=== PATIENT | female | born 1975 | race African-American/Black ===

== ENCOUNTER 2019-02-04 11:59 | Emergency (ER) | payer BC ==
[~2019-02-04] VITALS: Ht 165.1 cm; Wt 81.6 kg
--- OUTSIDE RECORDS SUMMARY | 2019-02-04 12:07 | XMS REPORT | CCD ---
Author Author Auto Generated Organization [facility] Address Unknown Phone Unavailable Care Team Providers Care Pier Master Assistant Name Role Phone Sandeep Cobb CP Allergies, Adverse Reactions, Alerts Substance Reaction Status NKDA Active Medications Medication Instructions Start Date End Date Status fluconazole 150 mg 150 mg, 1 tab, PO, ONCE, 1 tab, 05/24/2013 Ordered oral tablet Substitution Allowed Ultram 50 mg oral 50 mg, 1 tab, PO, Q4H, PRN, 20 tab, 05/24/2013 Ordered tablet pain, Substitution Allowed [place] 5/325 oral 1 tab, Route: PO, Drug Form: TAB, 05/24/2013 05/24/2013 Completed tablet Dosing Weight 80, kg, ONCE, Start date: 05/24/13 7:11:00, Stop date: 05/24/13 7:11:00 Vital Signs Most recent to oldest [Reference Range]: 1 2 Height 162.56 cm (05/24/2013 06:49:00) Temperature Oral [96.4-99.1 DegF] 98.6 DegF (05/24/2013 09:40:00) 98.6 DegF (05/24/2013 06:49:00) Systolic Blood Pressure [90-140 mmHg] 133 mmHg (05/24/2013 09:40:00) 145 mmHg *HI* (05/24/2013 06:49:00) Diastolic Blood Pressure [60-90 mmHg] 74 mmHg (05/24/2013 09:40:00) 74 mmHg (05/24/2013 06:49:00) Respiratory Rate [14-20 BRMIN] 20 BRMIN (05/24/2013 09:40:00) 18 BRMIN (05/24/2013 06:49:00) Peripheral Pulse Rate [60-100 bpm] 85 bpm (05/24/2013 09:40:00) 86 bpm (05/24/2013 06:49:00) Weight 80 kg (05/24/2013 06:49:00) Results URINALYSIS Most recent to oldest [Reference Range]: 1 UA Turbidity [Clear] Clear (05/24/2013 06:57:00) UA Color [Yellow] Yellow *NA* (05/24/2013 06:57:00) UA pH [5.0-8.0] 6.0 (05/24/2013 06:57:00) UA Spec Grav [<=1.030] 1.025 (05/24/2013 06:57:00) UA Glucose [Negative] Negative (05/24/2013 06:57:00) UA Blood [Negative] Moderate *ABN* (05/24/2013 06:57:00) UA Ketones [Negative] Negative *NA* (05/24/2013 06:57:00) UA Protein [Negative mg/dL] 30 mg/dL *ABN* (05/24/2013 06:57:00) UA Urobilinogen [0.1-1.0 EU/dL] 0.2 EU/dL (05/24/2013 06:57:00) UA Bili [Negative] Negative *NA* (05/24/2013 06:57:00) UA Leuk Est [Negative] Trace *ABN* (05/24/2013 06:57:00) UA Nitrite [Negative] Negative (05/24/2013 06:57:00) UA WBC [0-5 /HPF] 8 /HPF *HI* (05/24/2013 06:57:00) UA RBC [0-2 /HPF] 6 /HPF *HI* (05/24/2013 06:57:00) UA Bacteria [None Seen /HPF] Occasional /HPF *NA* (05/24/2013 06:57:00) UA Sq Epi [Few /LPF] Many /LPF *ABN* (05/24/2013 06:57:00) UA [place] Yeast [None Seen /HPF] Occasional /HPF *ABN* (05/24/2013 06:57:00) CHEMISTRY Most recent to oldest [Reference Range]: 1 U Preg [Negative] Negative (05/24/2013 06:57:00) IMMUNOLOGY Most recent to oldest [Reference Range]: 1 Source Chlam endocervix *NA* (05/24/2013 08:30:00) Chlam PCR [Negative] Negative (05/24/2013 08:30:00) Source [place] Endocervix *NA* (05/24/2013 08:30:00) Gonorrhea PCR [Negative] Negative (05/24/2013 08:30:00) Microbiology Reports PROCEDURE:Wet Prep STATUS: Auth (Verified) BODY SITE: Vaginal Smear COLLECTED DATE/TIME: 05/24/2013 08:30:00 SOURCE: Scraping FREE TEXT SOURCE: FINAL REPORTS Final Report Many WBC's Seen Rare RBC's Seen No Clue Cells Seen Occasional Epithelial Cells Seen No Bacteria Seen Occasional Yeast Seen No Trichomonas Species Seen PROCEDURE:Culture: Urine STATUS: Auth (Verified) BODY SITE: COLLECTED DATE/TIME: 05/24/2013 06:57:00 SOURCE: Urine, Clean Catch FREE TEXT SOURCE: FINAL REPORTS Final Report 10,000 - 50,000 CFU/mL Skin Mary <10,000 CFU/mL Gram Negative Rods, Lactose Fermenters PRELIMINARY REPORTS Preliminary Report Holding For Better Growth
--- OUTSIDE RECORDS SUMMARY | 2019-02-04 12:07 | XMS REPORT | Clinical Summary ---
Author Author [employer] Organization [employer] Address Unknown Phone Unavailable Care Team Providers Care Compo Conveyor Operator Name Role Phone Sally Bolanos MD PCP Allergies No Known Allergies Medications End Date Status Medication Sig Dispensed Refills Start Date Active brimonidine-timolol Administer 1 0 (COMBIGAN) 0.2-0.5 % drop to both 8 ophthalmic solution eyes daily. Active LANTUS SOLOSTAR U-100 Inject 50 0 INSULIN 100 unit/mL Units under 8 injection (pen) the skin nightly. Active HYZAAR 100-25 mg per Take 1 tablet 0 tablet by mouth 8 daily. Active HUMALOG KWIKPEN INSULIN Inject 13 0 200 unit/mL (3 mL) Units under 8 insulin pen the skin 3 (three) times a day before meals. Active diazePAM (VALIUM) 5 MG Take 5 mg by 0 tablet mouth nightly 8 as needed. Active VITAMIN D2 50,000 unit Take 50,000 0 capsule Units by 8 mouth once a week. Every Thursday Active simvastatin (ZOCOR) 20 MG Take 20 mg by 0 tablet mouth 8 nightly. Active pen needle, diabetic (BD 3 (three) 0 ULTRA-FINE MINI PEN times daily. 0 NEEDLE) 31 gauge x 3/16" needle 05/04/2018 Discontinued PREMARIN 1.25 mg tablet 0 8 07/09/2018 Discontinued insulin detemir U-100 Inject 35 0 (LEVEMIR) 100 unit/mL Units under 0 injection the skin. 03/29/2018 Discontinued LANTUS SOLOSTAR U-100 INJ 50 UNITS 2 INSULIN 100 unit/mL SC QHS 8 injection (pen) 07/28/2018 Discontinued norethindrone (AYGESTIN) Take 1 tablet 30 tablet 11 5 mg tablet (5 mg total) 8 by mouth daily. 05/07/2018 doxycycline (VIBRAMYCIN) Take 1 6 capsule 0 100 MG capsule capsule (100 8 mg total) by mouth 2 (two) times a day for 3 days. 08/26/2018 ibuprofen (ADVIL,MOTRIN) Take 1 tablet 15 tablet 0 600 MG tablet (600 mg 8 total) by mouth every 6 (six) hours as needed for mild pain for up to 30 days. 08/01/2018 acetaminophen-codeine Take 1 tablet 10 tablet 0 (TYLENOL WITH CODEINE #3) by mouth 8 300-30 mg per tablet every 4 (four) hours as needed for moderate pain for up to 5 days. 08/27/2018 simethicone (GAS-X) 80 MG Chew 1 tablet 15 tablet 0 chewable tablet (80 mg total) 8 every 6 (six) hours as needed for flatulence for up to 30 days. 09/02/2018 acetaminophen-codeine Take 1 tablet 30 tablet 0 (TYLENOL WITH CODEINE #3) by mouth 8 300-30 mg per tablet every 6 (six) hours as needed for moderate pain for up to 30 days. 10/04/2018 metroNIDAZOLE (FLAGYL) Take 1 tablet 14 tablet 0 500 MG tablet (500 mg 9 total) by mouth 2 (two) times a day for 7 days. Active Problems Problem Noted Date Abnormal uterine bleeding 07/27/2018 Abnormal vaginal bleeding 07/27/2018 Encounters Care Team Description Date Type Specialty Cheikh Arreguin Abnormal uterine bleeding; BV (bacterial vaginosis) 09/27/2018 Office Visit Gynecologic Oncology Cheikh Arreguin Abnormal uterine bleeding 08/11/2018 Office Visit Gynecologic Oncology Shaye Farias MA 08/03/2018 Orders Only Gynecologic Oncology Cheikh Arreguin 08/03/2018 Telephone Gynecologic Oncology Cheikh Arreguin ROBOTIC HYSTERECTOMY, BILATERAL SALPINGECTOMY 07/27/2018 Surgery Obstetrics and Gynecology Anh Lombardi NP 07/27/2018 Anesthesia Obstetrics and Gynecology Event Cheikh Arreguin Abnormal uterine bleeding (Primary Dx); Menorrhagia with regular cycle; Abnormal vaginal bleeding 07/27/2018 Hospital Obstetrics and Gynecology - Encounter 07/28/2018 Cheikh Arreguin 07/26/2018 Telephone Gynecologic Oncology Cheikh Arreguin Pre-op testing 07/09/2018 Hospital Radiology Encounter Cheikh Arreguin Pre-op testing 07/09/2018 Pre-Admit Pre-Admission Testing Testing Appointment Pre-op testing (Primary Dx) 07/09/2018 Clinical Gynecologic Oncology Support Cheikh Arreguin 07/08/2018 Telephone Gynecologic Oncology Cheikh Arreguin Menorrhagia with irregular cycle 06/30/2018 Office Visit Gynecologic Oncology Dorothea Asif RN 06/04/2018 Telephone Obstetrics and Gynecology Dorothea Asif RN Dysfunctional uterine bleeding (Primary Dx) 06/04/2018 Orders Only Obstetrics and Gynecology Karen Ham RN 06/01/2018 Telephone Obstetrics and Gynecology Karen Ham RN Menorrhagia with regular cycle (Primary Dx) 06/01/2018 Orders Only Obstetrics and Gynecology Dorothea Asif RN 05/11/2018 Telephone Obstetrics and Gynecology Nate Mcgraw MD DUB (dysfunctional uterine bleeding) (Primary Dx); Pre-procedure lab exam 05/04/2018 Procedure visit Obstetrics and Gynecology Nate Mcgraw MD DUB (dysfunctional uterine bleeding) 05/04/2018 Ancillary Obstetrics and Gynecology Procedure Lizzie Lugo MA 04/05/2018 Telephone Obstetrics and Gynecology Lizzie Lugo MA DUB (dysfunctional uterine bleeding) (Primary Dx) 03/30/2018 Orders Only Obstetrics and Gynecology Nate Mcgraw MD Well woman exam (Primary Dx); DUB (dysfunctional uterine bleeding) 03/29/2018 Office Visit Obstetrics and Gynecology after 02/03/2018 Family History Medical History Relation Name Comments Diabetes Father Hypertension Mother Relation Name Status Comments Father Alive Mother Alive Social History Date Tobacco Use Types Packs/Day Years Used Never Smoker Smokeless Tobacco: Never Used Alcohol Use Drinks/Week oz/Week Comments Yes occassional Sex Assigned at Date Recorded Not on file Industry Job Start Date Occupation Not on file Not on file Not on file Travel End Travel History Travel Start No recent travel history available. Last Filed Vital Signs Time Taken Vital Sign Reading 09/27/2018 9:15 AM [facility] Blood Pressure 165/84 08/11/2018 10:56 AM [facility] Pulse 90 07/28/2018 11:52 AM [facility] Temperature 37.5 C (99.5 F) 07/28/2018 11:52 AM [facility] Respiratory Rate 20 07/28/2018 11:52 AM [facility] Oxygen Saturation 96% - Inhaled Oxygen - Concentration 09/27/2018 9:15 AM [facility] Weight 82.6 kg (182 lb) 07/27/2018 6:22 AM [facility] Height 165.1 cm (5' 5") 09/27/2018 9:15 AM [facility] Body Mass Index 30.29 Plan of Treatment Health Maintenance Due Date Last Done Comments CERVICAL CANCER SCREENING 01/08/1997 INFLUENZA VACCINE 04/21/2019 Procedures Comments Procedure Name Priority Date/Time Associated Diagnosis POC GLUCOSE Routine 07/28/2018 11:52 AM [facility] POC GLUCOSE Routine 07/28/2018 9:00 AM [facility] POC GLUCOSE Routine 07/28/2018 7:30 AM [facility] HC COMPLETE BLD COUNT Routine 07/28/2018 W/AUTO DIFF 5:15 AM [facility] ESTIMATED GFR Routine 07/28/2018 4:00 AM [facility] BASIC METABOLIC PANEL Routine 07/28/2018 4:00 AM [facility] XR CHEST 1 VW PORTABLE STAT 07/27/2018 10:30 PM [facility] ECG 12-LEAD Routine 07/27/2018 10:13 PM [facility] POC GLUCOSE Routine 07/27/2018 9:18 PM [facility] POC GLUCOSE Routine 07/27/2018 2:48 PM [facility] SURGICAL PATHOLOGY Routine 07/27/2018 REQUEST 11:23 AM [facility] POC GLUCOSE Routine 07/27/2018 9:50 AM [facility] UT AN ELECTIVE Routine 07/27/2018 ENDOTRACHEAL AIRWAY 8:28 AM [facility] Procedure Note - Neli Yung - 07/27/2018 8:28 AM [facility] Airway Date/Time: 07/27/2018 7:55 AM Performed by: JEREMY JULES Authorized by: JEREMY JULES Location: OR Urgency: Elective Difficult Airway: No Anesthesio logist: JEREMY JULES Other Anesthesia Staff: NELI YUNG Performed by: other anesthesia staff Preoxygena kahlil with 100% O2: Yes C-spine Precaution s Maintained Throughout : Yes Mask Ventilatio n: Assisted mask Final Airway Type: Endotrache al airway Final Endotrache al Airway: ETT Cuffed: Yes Technique Used: Direct laryngosco py Devices/Me thods Used in Placement: Intubatin g stylet Insertion Site: Oral Blade Type: Laurent Laryngosco pe Blade/Vide olaryngosc ope Blade Size: 2 ETT Size (mm): 7.0 Cuff at minimum occlusion pressure: Yes Measured from: Lips ETT to Lips (cm): 20 Placement Verified by: CO2 detection, direct visualizat ion and equal breath sounds Laryngosco pic view: Grade I - full view of glottis Rapid Sequence Induction (RSI): No Number of Attempts at Approach: 1 HYSTERECTOMY, ABDOMINAL, 07/27/2018 Menorrhagia with regular LAPAROSCOPIC, 8:00 AM [facility] cycle ROBOT-ASSISTED Case Notes DAVINCI* *, POSSIBLE EXTENDED RECOVERY Special Needs DAVINCI* *, POSSIBLE EXTENDED RECOVERY POC GLUCOSE Routine 07/27/2018 6:40 AM [facility] XR CHEST 2 VW Routine 07/09/2018 Pre-op testing 1:04 PM CDT ECG PRE/POST OP Routine 07/09/2018 Pre-op testing 12:04 PM CDT HEMOGLOBIN A1C Routine 07/09/2018 Pre-op testing 11:57 AM CDT ESTIMATED GFR Routine 07/09/2018 11:53 AM CDT TYPE AND SCREEN Routine 07/09/2018 Pre-op testing 11:53 AM CDT PROTHROMBIN TIME WITH INR Routine 07/09/2018 Pre-op testing 11:53 AM CDT PARTIAL THROMBOPLASTIN Routine 07/09/2018 Pre-op testing TIME (PTT) 11:53 AM CDT COMPREHENSIVE METABOLIC Routine 07/09/2018 Pre-op testing PANEL 11:53 AM CDT HC COMPLETE BLD COUNT Routine 07/09/2018 Pre-op testing W/AUTO DIFF 11:53 AM CDT US GUIDED INTRAOPERATIVE Routine 05/04/2018 DUB (dysfunctional 3:00 PM CDT uterine bleeding) SURGICAL PATHOLOGY Routine 05/04/2018 DUB (dysfunctional REQUEST 3:00 PM CDT uterine bleeding) TISSUE, SPECIMEN A Routine 05/04/2018 3:00 PM CDT POC , URINE Routine 05/04/2018 Pre-procedure lab exam 2:49 PM CDT DUB (dysfunctional uterine bleeding) CHLAMYDIA/N. GONORRHOEAE Routine 03/29/2018 RNA, TMA 3:43 PM CDT HPV MRNA E6/E7 REFLEX Routine 03/29/2018 HPV 16, 18/45 (REFLEX) 3:43 PM CDT THINPREP TIS PAP Routine 03/29/2018 3:43 PM CDT PAP W/AGE BASED SCREENING Routine 03/29/2018 Well woman exam PLUS CT/NG 3:43 PM CDT DUB (dysfunctional uterine bleeding) FOLLICLE STIMULATING Routine 03/29/2018 DUB (dysfunctional HORMONE 2:57 PM CDT uterine bleeding) after 02/03/2018 Results * POC glucose (07/28/2018 11:52 AM [facility]) Only the most recent of 7 results within the time period is included. POC glucose 147 (H) 65 - 99 mg/dL [facility] DEPARTMENT OF Comment: PATHOLOGY AND [facility] Notified RN GENOMIC MEDICINE Meter ID: [id number] Business Development Analyst: Winter Hernandez Performing Organization Address City/State/Zipcode Phone Number [facility] DEPARTMENT OF [address] [place] [address] PATHOLOGY AND GENOMIC MEDICINE * CBC with platelet and differential (07/28/2018 5:15 AM [facility]) Only the most recent of 2 results within the time period is included. WBC 11.46 (H) 4.50 - 11.00 k/uL [facility] DEPARTMENT OF PATHOLOGY AND GENOMIC MEDICINE RBC 3.01 (L) 4.20 - 5.50 m/uL [facility] DEPARTMENT OF PATHOLOGY AND GENOMIC MEDICINE HGB 8.3 (L) 12.0 - 16.0 g/dL [facility] DEPARTMENT OF PATHOLOGY AND GENOMIC MEDICINE HCT 25.4 (L) 37.0 - 47.0 % [facility] DEPARTMENT OF PATHOLOGY AND GENOMIC MEDICINE MCV 84.4 82.0 - 100.0 fL [facility] DEPARTMENT OF PATHOLOGY AND GENOMIC MEDICINE MCH 27.6 27.0 - 34.0 pg [facility] DEPARTMENT OF PATHOLOGY AND GENOMIC MEDICINE MCHC 32.7 31.0 - 37.0 g/dL [facility] DEPARTMENT OF PATHOLOGY AND GENOMIC MEDICINE RDW - SD 40.8 37.0 - 55.0 fL [facility] DEPARTMENT OF PATHOLOGY AND GENOMIC MEDICINE MPV 10.0 8.8 - 13.2 fL [facility] DEPARTMENT OF PATHOLOGY AND GENOMIC MEDICINE Platelet count 334 150 - 400 k/uL [facility] DEPARTMENT OF PATHOLOGY AND GENOMIC MEDICINE Nucleated RBC 0.00 /100 WBC [facility] DEPARTMENT OF PATHOLOGY AND GENOMIC MEDICINE Neutrophils 75.0 (H) 39.0 - 69.0 % [facility] DEPARTMENT OF PATHOLOGY AND GENOMIC MEDICINE Lymphocytes 14.9 (L) 25.0 - 45.0 % [facility] DEPARTMENT OF PATHOLOGY AND GENOMIC MEDICINE Monocytes 8.9 0.0 - 10.0 % [facility] DEPARTMENT OF PATHOLOGY AND GENOMIC MEDICINE Eosinophils 0.2 0.0 - 5.0 % [facility] DEPARTMENT OF PATHOLOGY AND GENOMIC MEDICINE Basophils 0.4 0.0 - 1.0 % [facility] DEPARTMENT OF PATHOLOGY AND GENOMIC MEDICINE Immature granulocytes 0.6Comment: "Immature 0.0 - 1.0 % [facility] DEPARTMENT OF granulocytes" (promyelocytes, PATHOLOGY AND myelocytes, metamyelocytes) [facility] MEDICINE Specimen Blood Performing Organization Address City/State/Zipcode Phone Number [facility] DEPARTMENT OF [address] [place] [address] PATHOLOGY AND GENOMIC MEDICINE * Estimated GFR (07/28/2018 4:00 AM [facility]) Only the most recent of 2 results within the time period is included. Estimated GFR 15 (A) mL/min/1.73 m2 [facility] DEPARTMENT OF Comment: PATHOLOGY AND [employer] GENOMIC MEDICINE rpretation G1 >=90 Normal or high G2 60-89Mildly decreased Q2w89-73 Mildly to moderately decreased Q4e67-71 Moderately to severely decreased G4 15-29Severely decreased G5 <15Kidney failure The eGFR was calculated using the Chronic Kidney Disease Epidemiology Collaboration (CKD-EPI) equation. Interpretation is based on recommendations of the National Kidney Foundation-Kidney Disease Outcomes Quality Initiative (NKF-KDOQI) published in 2014. Specimen Plasma specimen Performing Organization Address City/[facility] [place] [address] PATHOLOGY AND GENOMIC MEDICINE * Basic metabolic panel (07/28/2018 4:00 AM [facility]) Sodium 133 (L) 135 - 148 mEq/L [facility] DEPARTMENT OF PATHOLOGY AND GENOMIC MEDICINE Potassium 3.7 3.5 - 5.0 mEq/L [facility] DEPARTMENT OF PATHOLOGY AND GENOMIC MEDICINE Chloride 99 98 - 112 mEq/L [facility] DEPARTMENT OF PATHOLOGY AND GENOMIC MEDICINE CO2 21 (L) 24 - 31 mEq/L [facility] DEPARTMENT OF PATHOLOGY AND GENOMIC MEDICINE Anion gap 13@ANIO 7 - 15 mEq/L [facility] DEPARTMENT OF PATHOLOGY AND GENOMIC MEDICINE BUN 38 (H) 6 - 20 mg/dL [facility] DEPARTMENT OF PATHOLOGY AND GENOMIC MEDICINE Creatinine 3.58 (H) 0.50 - 0.90 mg/dL [facility] DEPARTMENT OF PATHOLOGY AND GENOMIC MEDICINE Glucose 53 (L) 65 - 99 mg/dL [facility] DEPARTMENT OF PATHOLOGY AND GENOMIC MEDICINE Calcium 8.5 8.3 - 10.2 mg/dL [facility] DEPARTMENT OF PATHOLOGY AND GENOMIC MEDICINE Specimen Plasma specimen Performing Organization Address [facility] [place] [address] PATHOLOGY AND GENOMIC MEDICINE * XR Chest 1 Vw Portable (07/27/2018 10:30 PM [facility]) Narrative Performed At EXAMINATION:XR CHEST 1 VW PORTABLE [facility] CLINICAL HISTORY:Shortness of breath COMPARISON:July 09, 2008 IMPRESSION: The lungs are clear. The heart is not enlarged. The bony structures are within normal limits. [facility]-[id number] Procedure Note Hm Interface, Radiology Results Incoming - 07/27/2018 10:39 PM [facility] EXAMINATION: XR CHEST 1 VW PORTABLE CLINICAL HISTORY: Shortness of breath COMPARISON: July 09, 2008 IMPRESSION: The lungs are clear. The heart is not enlarged. The bony structures are within normal limits. [facility]-[id number] Performing Organization Address City/[facility]/Zipcode Phone Number [facility] [address] [place] [address] * ECG 12 lead (07/27/2018 10:13 PM [facility]) Ventricular rate 103 [facility] MUSE Atrial rate 103 [facility] M[facility] UT interval 164 [facility] M[facility] QRSD interval 80 [facility] M[facility] QT interval 346 [facility] M[facility] QTC interval 453 [facility] MUSE P axis 1 52 [facility] MUSE QRS axis 1 34 [facility] MUSE T wave axis 49 [facility] MUSE EKG impression Sinus tachycardia-Otherwise [facility] MUSE normal ECG-- Performing Organization Address [facility] Phone Number [facility] [address] [place] [address] * Surgical pathology request (07/27/2018 11:23 AM [facility]) Only the most recent of 2 results within the time period is included. [facility] DEPARTMENT OF PATHOLOGY AND GENOMIC MEDICINE Surgical pathology report See link below for PDF Lab [facility] DEPARTMENT OF Report PATHOLOGY AND GENOMIC MEDICINE Result status This is Final Report for [facility] DEPARTMENT OF [id number] PATHOLOGY AND GENOMIC MEDICINE Performing Organization Address [facility] Phone Number [facility] DEPARTMENT OF [address] [place] [address] PATHOLOGY AND GENOMIC MEDICINE * XR Chest 2 Vw (07/09/2018 1:04 PM CDT) Narrative Performed At EXAMINATION:XR CHEST 2 VW [facility] CLINICAL HISTORY:Z01.818 Encounter for other preprocedural examination, pre op COMPARISON:None IMPRESSION: 1.Lungs are clear and the heart size is normal. 2.The vessels are not congested. There are no pleural effusions. [id number] Procedure Note Interface, Radiology Results Incoming - 07/09/2018 1:27 PM CDT EXAMINATION: XR CHEST 2 VW CLINICAL HISTORY: Z01.818 Encounter for other preprocedural examination, pre op COMPARISON: None IMPRESSION: 1. Lungs are clear and the heart size is normal. 2. The vessels are not congested. There are no pleural effusions. [id number] Performing Organization Address [facility]/Zipcode Phone Number [facility] [address] [place] [address] * ECG Pre/Post Op (07/09/2018 12:04 PM CDT) Ventricular rate 76 [facility] MUSE Atrial rate 76 [facility] MUSE UT interval 186 [facility] MUSE QRSD interval 78 [facility]USE QT interval 384 [facility] MUSE QTC interval 432 [facility] MUSE P axis 1 61 [facility] MUSE QRS axis 1 42 [facility] MUSE T wave axis 42 [facility] MUSE EKG impression Normal sinus rhythm-Normal [facility] MUSE ECG-No previous ECGs available- Performing Organization Address [facility] Phone Number [facility] [address] [place] [address] * Hemoglobin A1c (07/09/2018 11:57 AM CDT) Hemoglobin A1C 7.7 (H) 4.0 - 5.6 % [facility] DEPARTMENT OF Comment: PATHOLOGY AND HbA1c cutoffs for diagnosing GENOMIC MEDICINE diabetes: 4.0% - 5.6%=normal 5.7% - 6.4%=increased risk for diabetes (prediabetes) >=6.5%=diabetes Goals for glycemic control (ADA 2016) < 7.0%Target for non adults with diabetes. More or less stringent targets may be appropriate for individual patients. <7.5% Target for Children and adolescents with type 1 diabetes. Specimen Blood Performing Organization Address [facility] Phone Number [facility] [place] [address] PATHOLOGY AND [employer] MEDICINE * Partial thromboplastin time, activated (07/09/2018 11:53 AM CDT) PTT 24.4 23.0 - 36.0 sec [facility] DEPARTMENT OF Comment: PATHOLOGY AND PTT therapeutic range for GENOMIC MEDICINE unfractionated heparin is 61.0-112.0 seconds which corresponds to Anti-Xa 0.3-0.7 U/ml. Specimen Blood Performing Organization Address [facility] Phone Number [facility] [place] [address] PATHOLOGY AND [employer] MEDICINE * Prothrombin time with INR (07/09/2018 11:53 AM CDT) Prothrombin time 13.3 12.0 - 15.0 sec [facility] DEPARTMENT OF PATHOLOGY AND GENOMIC MEDICINE INR 1.0 [facility] DEPARTMENT OF Comment: PATHOLOGY AND The International Normalized GENOMIC MEDICINE Ratio (INR) is a therapeutic monitoring tool for patients who are stable on oral anticoagulant therapy. An INR of 2.0-3.0 is suggested for deep vein thrombosis/pulmonary embolism. Specimen Blood Performing Organization Address City/[facility]/[place] [address] PATHOLOGY AND GENOMIC MEDICINE * Type and screen (07/09/2018 11:53 AM CDT) ABO grouping O [facility] DEPARTMENT OF PATHOLOGY AND GENOMIC MEDICINE Rh type POS [facility] DEPARTMENT OF PATHOLOGY AND GENOMIC MEDICINE Antibody screen (gel) NEG [facility] DEPARTMENT OF PATHOLOGY AND GENOMIC MEDICINE Specimen Blood Performing Organization Address City/[facility] [place] [address] PATHOLOGY AND GENOMIC MEDICINE * Comprehensive metabolic panel (07/09/2018 11:53 AM CDT) Sodium 135 135 - 148 mEq/L [facility] DEPARTMENT OF PATHOLOGY AND GENOMIC MEDICINE Potassium 4.0 3.5 - 5.0 mEq/L [facility] DEPARTMENT OF PATHOLOGY AND GENOMIC MEDICINE Chloride 101 98 - 112 mEq/L [facility] DEPARTMENT OF PATHOLOGY AND GENOMIC MEDICINE CO2 22 (L) 24 - 31 mEq/L [facility] DEPARTMENT OF PATHOLOGY AND GENOMIC MEDICINE Anion gap 12@ANIO 7 - 15 mEq/L [facility] DEPARTMENT OF PATHOLOGY AND GENOMIC MEDICINE BUN 38 (H) 6 - 20 mg/dL [facility] DEPARTMENT OF PATHOLOGY AND GENOMIC MEDICINE Creatinine 3.16 (H) 0.50 - 0.90 mg/dL [facility] DEPARTMENT OF PATHOLOGY AND GENOMIC MEDICINE Glucose 166 (H) 65 - 99 mg/dL [facility] DEPARTMENT OF PATHOLOGY AND GENOMIC MEDICINE Calcium 9.1 8.3 - 10.2 mg/dL [facility] DEPARTMENT OF PATHOLOGY AND GENOMIC MEDICINE Protein 7.2 6.3 - 8.3 g/dL [facility] DEPARTMENT OF Comment: PATHOLOGY AND GENOMIC MEDICINE 4.6-7.0 g/dL 1 week 4.4-7.6 g/dL 7 months-1year 5.1-7.3 g/dL 1-2 years5.6-7 .5 g/dL >3 years6.0-8 .0 g/dL 18-150 6.3-8.3 g/dL Albumin 3.0 (L) 3.5 - 5.0 g/dL [facility] DEPARTMENT OF PATHOLOGY AND GENOMIC MEDICINE A/G ratio 0.7 0.7 - 3.8 [facility] DEPARTMENT OF PATHOLOGY AND GENOMIC MEDICINE Alkaline phosphatase 59 35 - 104 U/L [facility] DEPARTMENT OF PATHOLOGY AND GENOMIC MEDICINE AST 14 10 - 35 U/L [facility] DEPARTMENT OF PATHOLOGY AND GENOMIC MEDICINE ALT 15 5 - 50 U/L [facility] DEPARTMENT OF PATHOLOGY AND GENOMIC MEDICINE Total bilirubin <0.2 0.0 - 1.2 mg/dL [facility] DEPARTMENT OF PATHOLOGY AND GENOMIC MEDICINE Specimen Plasma specimen Performing Organization Address City/[facility] Phone Number [facility] DEPARTMENT OF [address] [place] [address] PATHOLOGY AND GENOMIC MEDICINE * US Guided Intraoperative (05/04/2018 3:00 PM CDT) Narrative Performed At [facility] Uterus: 9.4cm Endometrium: 4mm Performing Organization Address [facility] Phone Number [facility] [address] [place] [address] * TISSUE, SPECIMEN A (05/04/2018 3:00 PM CDT) Source Comment: Endometrium [facility] Procedure Comment: Biopsy [facility] Gross description: Comment: [facility] EMB, received in formalin, [facility] verified as to the patient's name and consists of multiple fragments of dark red blood clot and regalado soft tissue forming a loose aggregate measuring 1.5 x 1.0 x 0.4 cm.TS, one block(s). CW 05/05/2018 Gross exam(s) performed at: [address] [id number] Depositing Machine Operator: EMILIANO IRWIN MD Micro description Comment: [facility] Microscopic examination [facility] supports the above diagnosis. Diagnosis Comment: [facility] Benign proliferative [facility] endometrium. No hyperplasia or carcinoma is seen. Resulting Agency Comment Performing Organization Information: Site ID: [id number] Name: [facility] [facility], Address: [address] [place] [id number] Director: Emiliano Irwin MD Performing Organization Address City/[facility]ode Phone Number [facility] [address] [address] [address] [facility] * POC , urine (05/04/2018 2:49 PM CDT) test urine, POC Negative QC done Yes Specimen Urine * HPV mRNA E6/E7 REFLEX HPV 16, 18/45 (03/29/2018 3:43 PM CDT) HPV mRNA e6/e7 Not Detected Not Detected Master Route Comment: IBAPAH This test was performed using the APTIMA HPV Assay ([employer] This assay detects E6/E7 viral messenger RNA (mRNA) from 14 high-risk HPV types (16,18,31,33,35,39,45,51,52,56 ,58,59,66,68). The analytical performance characteristics of this assay have been determined by [facility]. The modifications have not been cleared or approved by the FDA. This assay has been validated pursuant to the CLIA regulations and is used for clinical purposes. Resulting Agency Comment Performing Organization Information: Site ID: [id number] Name: [facility] Address: [address] [place] [id number] Director: Emiliano Irwin Performing Organization Address City/State/Zipcode Phone [place] [address] * PAP W/AGE BASED SCREENING PLUS CT/NG (03/29/2018 3:43 PM CDT) Comment Comment: [facility] This [facility] cervical cancer and STI II screening follows ACOG guidelines(PB 168, 140, OMT689). See individual assays for performing site location. Specimen Swab Resulting Agency Comment Performing Organization Information: Site ID: [id number] [facility]: [facility] Address: [address] [place] [address] Director: Dr. Lawrence Huntley Performing Organization Address City/[facility]/Zipcode Phone Number [facility] [address] [place] [address] II * CHLAMYDIA/N. GONORRHOEAE RNA, TMA (03/29/2018 3:43 PM CDT) Chlamydia trachomatis NOT DETECTED NOT DETECTED [facility] RNA, TMA IBAPAH Neisseria gonorrhoeae NOT DETECTED NOT DETECTED [facility] RNA, TMA IBAPAH (Always message) Comment: Master Route This test was performed using IBAPAH the APTIMA COMBO2 Assay ([employer] The analytical performance characteristics of this assay, when used to test SurePath specimens have been determined by [facility]. Resulting Agency Comment Performing Organization Information: Site ID: [id number] Name: [facility] Address: [address] [place] [id number] Director: Emiliano Irwin Performing Organization Address City/State/Zipcode Phone Number DISHA Master Route IBAPAH [address] [place] [phone] * THINPREP TIS PAP (03/29/2018 3:43 PM CDT) Clinical information None given [facility] PATRICIA Date of last menstrual NONE GIVEN [facility] period PATRICIA Prev. pap: NONE GIVEN [facility] PATRICIA Prev. bx: NONE GIVEN [facility] PATRICIA Source None given [facility] PATRICIA Statement of adequacy Comment: [facility] Satisfactory for evaluation. LYME Endocervical/transformation zone component present. Age and/or menstrual status not provided Interpretation/result: Comment: Negative for Master Route intraepithelial lesion or LYME malignancy. Comment Comment: Master Route This Pap test has been LYME evaluated with computer assisted technology. Swimming Pool Maintenance Comment: [facility] [place], [place](ASCP) [facility] screening location: [address] [place] [id number] Review aviation medicine specialist Comment: Master Route [facility] screening location: [address] [place] [address] Comment Comment: Master Route EXPLANATORY NOTE: LYME The Pap is a screening test for cervical cancer. It is not a diagnostic test and is subject to false negative and false positive results. It is most reliable when a satisfactory sample, regularly obtained, is submitted with relevant clinical findings and history, and when the Pap result is evaluated along with historic and current clinical information. Resulting Agency Comment Performing Organization Information: Site ID: [id number] [facility]: [facility] Address: [address] [place] [address], [address] [place] [id number] Director: Emiliano Irwin MD Performing Organization Address City/State/Zipcode Phone Number [facility] [place] [address] [place], [place] [phone] [place] * Follicle stimulating hormone (03/29/2018 2:57 PM CDT) Follicle stimulating 6.8 mIU/mL [facility] hormone Comment: IBAPAH Reference Range Follicular Phase 2.5-10.2 Mid-cycle Peak 3.1-17.7 Luteal Phase 1.5- 9.1 Postmenopausal 23.0-116.3 Specimen Blood Resulting Agency Comment Performing Organization Information: Site ID: [id number] Name: [facility] Address: [address] [place] [address] Director: Emiliano Irwin Performing Organization Address [facility] Phone Number [facility] IBAPAH [address] [place] [phone] after 02/03/2018 Insurance Payer Benefit Subscriber ID Type Phone Address Plan / Group BCBS BCBS xxxxxxxxxxxx PPO CHOICE PPO/ANGELA [employer]UREGUI PPO ([place]) [address] [place] [id number] Advance Directives Patient has advance care planning documents on file. For more information, ricky espinosa contact: Saman Quesada [address] [place] [address]
--- OUTSIDE RECORDS SUMMARY | 2019-02-04 12:07 | XMS REPORT | Summary of Care ---
Author Author [facility] Organization [facility] Address Unknown Phone Unavailable Encounter HQ Encntr_jess(FIN) [id number] Date(s): 06/24/17 - 06/24/17 [facility] [address] [place] [address]- [phone] Discharge Disposition: Home or Self Care Attending Physician: Sally Bolanos MD Vital Signs No data available for this section Problem List No data available for this section Allergies, Adverse Reactions, Alerts Substance Reaction Severity Status NKDA Active Medications No data available for this section Results No data available for this section Immunizations No data available for this section Procedures No data available for this section Social History No data available for this section Assessment and Plan No data available for this section
--- OUTSIDE RECORDS SUMMARY | 2019-02-04 12:07 | XMS REPORT | Summary of Care ---
Author Author [facility] Organization [facility] Address Unknown Phone Unavailable Encounter HQ Encntr_alias(FIN) [id number] Date(s): 05/31/16 - 05/31/16 [facility] [address] [place] [address]- Discharge Disposition: Home or Self Care Attending Physician: Sally Bolanos MD Referring Physician: Sally Bolanos MD Vital Signs No [...]
--- OUTSIDE RECORDS SUMMARY | 2019-02-04 12:07 | XMS REPORT ---
Author Author [facility] Address Unknown Phone Unavailable Care Team Providers Care Brake Repairer Air Name Role Phone Unavailable Unavailable Problems This patient has no known problems. Allergies, Adverse Reactions, Alerts This patient has no known allergies or adverse reactions. Medications This patient has no known medications.
[2019-02-04] MEDS ORDERED: DIAZEPAM 5 MG TAB PO PRN (12:30)
[2019-02-04] MEDS ORDERED: LANTUS 3ML100 UNITS/ (12:37)
[2019-02-04] MEDS ORDERED: HUMALOG100 UNIT/3 (12:37)
[2019-02-04] MEDS ORDERED: SIMVASTATIN20 MG PO (12:37)
[2019-02-04] MEDS ORDERED: LOSARTAN-HCTZ1 EAC1 PO (12:37)
[2019-02-04] MEDS ORDERED: NORVASC5 MG PO (12:37)
[2019-02-04] MEDS ORDERED: HYDROCODONE/APAP 5MG-325MG TAB PO NR (13:00)
--- NOTE | 2019-02-04 13:20 | Diagnostic Imaging Report ---
EXAM: CXR 2 VIEW - HOPD, PA and lateral DATE: 02/04/2019 Time stamp on exam: 12:35 PM INDICATION: Chest and upper back pain COMPARISON: None FINDINGS: LINES/TUBES: None LUNGS: No consolidations or edema. PLEURA: No effusions or pneumothorax. HEART AND MEDIASTINUM: Normal size and contour. BONES AND SOFT TISSUES: No acute findings. IMPRESSION: No acute thoracic abnormality. Signed by: Dr. Rohan Poe DO on 02/04/2019 1:17 PM
[2019-02-04] MEDS ORDERED: CYCLOBENZAPRINE HCL 10 MG TAB ONE (13:30)
[2019-02-04] MEDS ORDERED: CYCLOBENZAPRINE HCL 10 MG TAB PO ONE (13:30)
== END 2019-02-04 13:22 | disposition home or self-care (01) ==
LOC: ER 11:59 → FSED 13:22
DX: M54.6 Pain in thoracic spine (principal); S23.3XXA Sprain of ligaments of thoracic spine, initial encounter
CPT/HCPCS: 71046; 99284

== ENCOUNTER 2019-03-03 21:33 | Emergency (ER) | payer BC ==
[~2019-03-03] VITALS: Ht 165.1 cm; Wt 81.6 kg
[~2019-03-03 21:33] MED LIST: HUMALOG100 UNIT/3; LANTUS 3ML100 UNITS/; LOSARTAN-HCTZ1 EAC1 PO; NORVASC5 MG PO; SIMVASTATIN20 MG PO
--- OUTSIDE RECORDS SUMMARY | 2019-03-03 21:35 | XMS REPORT | Clinical Summary ---
Author Author [facility] Address Unknown Phone Unavailable Care Team Providers Care Substation Superintendent Name Role Phone Sally Bolanos MD PCP [...] Dx) 03/30/2018 Orders Only Obstetrics and Gynecology Ntae Mcgraw MD Well woman exam (Primary Dx); DUB (dysfunctional uterine bleeding) 03/29/2018 Office Visit Obstetrics and Gynecology after 03/02/2018 Family History Medical History Relation Name Comments [...] Taken Vital Sign Reading 09/27/2018 9:15 AM MANAGER OPERATIONS Blood Pressure 165/84 08/11/2018 10:56 AM MANAGER OPERATIONS Pulse 90 07/28/2018 11:52 AM MANAGER OPERATIONS Temperature 37.5 C (99.5 F) 07/28/2018 11:52 AM MANAGER OPERATIONS Respiratory Rate 20 07/28/2018 11:52 AM MANAGER OPERATIONS Oxygen Saturation 96% - Inhaled Oxygen - Concentration 09/27/2018 9:15 AM MANAGER OPERATIONS Weight 82.6 kg (182 lb) 07/27/2018 6:22 AM MANAGER OPERATIONS Height 165.1 cm (5' 5") 07/27/2018 6:22 AM MANAGER OPERATIONS Body Mass Index 30.29 Plan of Treatment Health Maintenance Due Date Last Done Comments INFLUENZA VACCINE 04/21/2019 Procedures Comments Procedure Name Priority Date/Time Associated Diagnosis POC GLUCOSE Routine 07/28/2018 11:52 AM MANAGER OPERATIONS POC GLUCOSE Routine 07/28/2018 9:00 AM MANAGER OPERATIONS POC GLUCOSE Routine 07/28/2018 7:30 AM MANAGER OPERATIONS HC COMPLETE BLD COUNT Routine 07/28/2018 W/AUTO DIFF 5:15 AM MANAGER OPERATIONS ESTIMATED GFR Routine 07/28/2018 4:00 AM MANAGER OPERATIONS BASIC METABOLIC PANEL Routine 07/28/2018 4:00 AM MANAGER OPERATIONS XR CHEST 1 VW PORTABLE STAT 07/27/2018 10:30 PM MANAGER OPERATIONS ECG 12-LEAD Routine 07/27/2018 10:13 PM MANAGER OPERATIONS POC GLUCOSE Routine 07/27/2018 9:18 PM MANAGER OPERATIONS POC GLUCOSE Routine 07/27/2018 2:48 PM MANAGER OPERATIONS SURGICAL PATHOLOGY Routine 07/27/2018 REQUEST 11:23 AM MANAGER OPERATIONS POC GLUCOSE Routine 07/27/2018 9:50 AM MANAGER OPERATIONS NV AN ELECTIVE Routine 07/27/2018 ENDOTRACHEAL AIRWAY 8:28 AM MANAGER OPERATIONS Procedure Note - Neli Yung - 07/27/2018 8:28 AM MANAGER OPERATIONS Airway Date/Time: 07/27/2018 7:55 AM Performed by: [...] 07/27/2018 Menorrhagia with regular LAPAROSCOPIC, 8:00 AM MANAGER OPERATIONS cycle ROBOT-ASSISTED Case Notes DAVINCI* *, POSSIBLE EXTENDED RECOVERY Special Needs DAVINCI* *, POSSIBLE EXTENDED RECOVERY POC GLUCOSE Routine 07/27/2018 6:40 AM MANAGER OPERATIONS XR CHEST 2 VW Routine 07/09/2018 Pre-op [...] HORMONE 2:57 PM CDT uterine bleeding) after 03/02/2018 Results * POC glucose (07/28/2018 11:52 AM MANAGER OPERATIONS) Only the most recent of 7 results within the time period is included. POC glucose 147 (H) 65 - 99 mg/dL [facility] DE[facility] Comment: OF PATHOLOGY [facility] Notified RN AND GENOMIC Meter ID: [id number] MEDICINE Marketing Business Analyst: Winter Dennyharlan Hernandez Specimen Performing Organization Address City/State/Zipcode Phone Number [facility] DEPARTMENT OF [address] [place] [address] PATHOLOGY AND GENOMIC MEDICINE * CBC with platelet and differential (07/28/2018 5:15 AM MANAGER OPERATIONS) Only the most recent of 2 results within the time period is included. WBC 11.46 (H) 4.50 - 11.00 k/uL [facility] DE[facility] OF PATHOLOGY AND GENOMIC MEDICINE RBC 3.01 (L) 4.20 - 5.50 m/uL [facility] DE[facility] OF PATHOLOGY AND GENOMIC MEDICINE HGB 8.3 (L) 12.0 - 16.0 g/dL [facility] DE[facility] OF PATHOLOGY AND GENOMIC MEDICINE HCT 25.4 (L) 37.0 - 47.0 % [facility] DE[facility] OF PATHOLOGY AND GENOMIC MEDICINE MCV 84.4 82.0 - 100.0 fL [facility] DE[facility]MENT OF PATHOLOGY AND GENOMIC MEDICINE MCH 27.6 27.0 - 34.0 pg [facility] DE[facility] OF PATHOLOGY AND GENOMIC MEDICINE MCHC 32.7 31.0 - 37.0 g/dL [facility] DE[facility] OF PATHOLOGY AND GENOMIC MEDICINE RDW - SD 40.8 37.0 - 55.0 fL [facility] DE[facility] OF PATHOLOGY AND GENOMIC MEDICINE MPV 10.0 8.8 - 13.2 fL [facility] DE[facility] OF PATHOLOGY AND GENOMIC MEDICINE Platelet count 334 150 - 400 k/uL [facility] DE[facility] OF PATHOLOGY AND GENOMIC MEDICINE Nucleated RBC 0.00 /100 WBC [facility] DE[facility]MENT OF PATHOLOGY AND GENOMIC MEDICINE Neutrophils 75.0 (H) 39.0 - 69.0 % [facility] DE[facility] OF PATHOLOGY AND GENOMIC MEDICINE Lymphocytes 14.9 (L) 25.0 - 45.0 % [facility] DE[facility] OF PATHOLOGY AND GENOMIC MEDICINE Monocytes 8.9 0.0 - 10.0 % [facility] DE[facility] OF PATHOLOGY AND GENOMIC MEDICINE Eosinophils 0.2 0.0 - 5.0 % [facility] DE[facility] OF PATHOLOGY AND GENOMIC MEDICINE Basophils 0.4 0.0 - 1.0 % [facility] DE[facility] OF PATHOLOGY AND GENOMIC MEDICINE Immature 0.6Comment: "Immature 0.0 - 1.0 % [facility] DE[facility] granulocytes granulocytes" (promyelocytes, OF PATHOLOGY myelocytes, metamyelocytes) AND GENOMIC MEDICINE Specimen Blood Performing Organization Address City/State/Zipcode Phone Number [facility] DEPARTMENT OF [address] [place] [address] PATHOLOGY AND GENOMIC MEDICINE * Estimated GFR (07/28/2018 4:00 AM MANAGER OPERATIONS) Only the most recent of 2 results within the time period is included. Estimated GFR 15 (A) mL/min/1.73 m2 [facility] Comment: OF PATHOLOGY CatergoryUnitsInte AND GENOMIC rpretation MEDICINE G1 >=90 Normal or high G2 60-89Mildly decreased [id number] Mildly to moderately decreased [id number] Moderately to severely decreased G4 15-29Severely decreased G5 <15Kidney failure The eGFR was calculated using the Chronic Kidney Disease Epidemiology Collaboration (CKD-EPI) equation. Interpretation is based on recommendations of the National Kidney Foundation-Kidney Disease Outcomes Quality Initiative (NKF-KDOQI) published in 2014. Specimen Plasma specimen Performing Organization Address City/[facility] Cent[facility] Phone Number [facility] [place] [address] PATHOLOGY AND GENOMIC MEDICINE * Basic metabolic panel (07/28/2018 4:00 AM MANAGER OPERATIONS) Sodium 133 (L) 135 - 148 mEq/L [facility] DE[facility] OF PATHOLOGY AND GENOMIC MEDICINE Potassium 3.7 3.5 - 5.0 mEq/L [facility] DE[facility] OF PATHOLOGY AND GENOMIC MEDICINE Chloride 99 98 - 112 mEq/L [facility] DE[facility] OF PATHOLOGY AND GENOMIC MEDICINE CO2 21 (L) 24 - 31 mEq/L [facility] DE[facility] OF PATHOLOGY AND GENOMIC MEDICINE Anion gap 13@ANIO 7 - 15 mEq/L [facility] DE[facility] OF PATHOLOGY AND GENOMIC MEDICINE BUN 38 (H) 6 - 20 mg/dL [facility] DE[facility] OF PATHOLOGY AND GENOMIC MEDICINE Creatinine 3.58 (H) 0.50 - 0.90 mg/dL [facility] DE[facility] OF PATHOLOGY AND GENOMIC MEDICINE Glucose 53 (L) 65 - 99 mg/dL [facility] DE[facility] OF PATHOLOGY AND GENOMIC MEDICINE Calcium 8.5 8.3 - 10.2 mg/dL [facility] DE[facility] OF PATHOLOGY AND GENOMIC MEDICINE Specimen Plasma specimen Performing Organization Address [facility] Centercode Phone Number [facility] [place] [address] PATHOLOGY AND GENOMIC MEDICINE * XR Chest 1 Vw Portable (07/27/2018 10:30 PM MANAGER OPERATIONS) Specimen Narrative Performed At EXAMINATION:XR CHEST 1 VW PORTABLE [facility] CLINICAL HISTORY:Shortness of breath COMPARISON:July 09, 2008 IMPRESSION: The lungs are clear. The heart is not enlarged. The bony structures are within normal limits. [facility]-[id number] Procedure Note Hm Interface, Radiology Results Incoming - 07/27/2018 10:39 PM MANAGER OPERATIONS EXAMINATION: XR CHEST 1 VW PORTABLE CLINICAL HISTORY: Shortness of breath COMPARISON: July 09, 2008 IMPRESSION: The lungs are clear. The heart is not enlarged. The bony structures are within normal limits. [facility]-[id number] Performing Organization Address City/State/Zipcode Phone Number [facility] [address] [place] [address] * ECG 12 lead (07/27/2018 10:13 PM MANAGER OPERATIONS) Ventricular 103 [facility] rate Atrial rate 103 [facility] NV interval 164 [facility] QRSD interval 80 [facility] QT interval 346 [facility] QTC interval 453 [facility] P axis 1 52 [facility] QRS axis 1 34 [facility] T wave axis 49 [facility] EKG impression Sinus tachycardia-Otherwise [facility] normal ECG-- Specimen Performing Organization Address City/[facility] Centercode Phone Number [facility] [address] [place] [address] * Surgical pathology request (07/27/2018 11:23 AM MANAGER OPERATIONS) Only the most recent of 2 results within the time period is included. [facility] DE[facility] OF PATHOLOGY AND GENOMIC MEDICINE Surgical See link below for PDF Lab [facility] DE[facility] pathology Report OF PATHOLOGY report AND GENOMIC MEDICINE Result status This is Final Report for [facility] [id number] OF PATHOLOGY AND GENOMIC MEDICINE Specimen Performing Organization Address City/State/Zipcode Phone Number [facility] DEPARTMENT OF [address] [place] [address] PATHOLOGY AND GENOMIC MEDICINE * XR Chest 2 Vw (07/09/2018 1:04 PM CDT) Specimen Narrative Performed At EXAMINATION:XR CHEST 2 VW [facility] CLINICAL HISTORY:Z01.818 Encounter for other preprocedural examination, pre op COMPARISON:None IMPRESSION: 1.Lungs are clear and the heart size is normal. 2.The vessels are not congested. There are no pleural effusions. [id number] Procedure Note Interface, Radiology Results Incoming - 07/09/2018 1:27 PM CDT EXAMINATION: XR CHEST 2 VW CLINICAL HISTORY: Z01.818 Encounter for other preprocedural examination, pre op COMPARISON: None IMPRESSION: 1. Lungs are clear and the heart size is normal. 2. The vessels are not congested. There are no pleural effusions. [id number] Performing Organization Address [facility]/Zipcode Phone Number [facility] [address] [place] [phone] * ECG Pre/Post Op (07/09/2018 12:04 PM CDT) Ventricular 76 [facility] rate Atrial rate 76 [facility] NV interval 186 [facility] QRSD interval 78 [facility] QT interval 384 [facility] QTC interval 432 [facility] P axis 1 61 [facility] QRS axis 1 42 [facility] T wave axis 42 [facility] EKG impression Normal sinus rhythm-Normal [facility] ECG-No previous ECGs available- Specimen Performing Organization Address [facility] Centercori Phone Number [facility] [address] [place] [phone] * Hemoglobin A1c (07/09/2018 11:57 AM CDT) Hemoglobin A1C 7.7 (H) 4.0 - 5.6 % [facility] Comment: OF PATHOLOGY HbA1c cutoffs for diagnosing AND GENOMIC diabetes: MEDICINE 4.0% - 5.6%=normal 5.7% - 6.4%=increased risk for diabetes (prediabetes) >=6.5%=diabetes Goals for glycemic control (ADA 2016) < 7.0%Target for non adults with diabetes. More or less stringent targets may be appropriate for individual patients. <7.5% Target for Children and adolescents with type 1 diabetes. Specimen Blood Performing Organization Address [facility] Centercode Phone Number [facility] DEPARTMENT OF [address] [place] [address] PATHOLOGY AND [facility] MEDICINE * Partial thromboplastin time, activated (07/09/2018 11:53 AM CDT) PTT 24.4 23.0 - 36.0 sec [facility] Comment: OF PATHOLOGY PTT therapeutic range for AND GENOMIC unfractionated heparin is MEDICINE 61.0-112.0 seconds which corresponds to Anti-Xa 0.3-0.7 U/ml. Specimen Blood Performing Organization Address [facility] Centercode Phone Number [facility] DEPARTMENT OF [address] [place] [address] PATHOLOGY AND GENOMIC MEDICINE * Prothrombin time with INR (07/09/2018 11:53 AM CDT) Prothrombin 13.3 12.0 - 15.0 sec [facility] DE[facility] time OF PATHOLOGY AND GENOMIC MEDICINE INR 1.0 [facility] Comment: OF PATHOLOGY The International Normalized AND GENOMIC Ratio (INR) is a therapeutic MEDICINE monitoring tool for patients who are stable on oral anticoagulant therapy. An INR of 2.0-3.0 is suggested for deep vein thrombosis/pulmonary embolism. Specimen Blood Performing Organization Address City/[facility]/Zipcode Phone Number [facility] DEPARTMENT OF [address] [place] [address] PATHOLOGY AND GENOMIC MEDICINE * Type and screen (07/09/2018 11:53 AM CDT) ABO grouping O [facility] DEPARTMENT OF PATHOLOGY AND GENOMIC MEDICINE Rh type POS [facility] DE[facility] OF PATHOLOGY AND GENOMIC MEDICINE Antibody screen NEG [facility] (gel) OF PATHOLOGY AND GENOMIC MEDICINE Specimen Blood Performing Organization Address City/[facility] Centercode Phone Number [facility] [place] [address] PATHOLOGY AND GENOMIC MEDICINE * Comprehensive metabolic panel (07/09/2018 11:53 AM CDT) Sodium 135 135 - 148 mEq/L [facility] DE[facility] OF PATHOLOGY AND GENOMIC MEDICINE Potassium 4.0 3.5 - 5.0 mEq/L [facility] DE[facility] OF PATHOLOGY AND GENOMIC MEDICINE Chloride 101 98 - 112 mEq/L [facility] DE[facility]MENT OF PATHOLOGY AND GENOMIC MEDICINE CO2 22 (L) 24 - 31 mEq/L [facility] DE[facility] OF PATHOLOGY AND GENOMIC MEDICINE Anion gap 12@ANIO 7 - 15 mEq/L [facility] DE[facility]MENT OF PATHOLOGY AND GENOMIC MEDICINE BUN 38 (H) 6 - 20 mg/dL [facility] DE[facility] OF PATHOLOGY AND GENOMIC MEDICINE Creatinine 3.16 (H) 0.50 - 0.90 mg/dL [facility] DE[facility] OF PATHOLOGY AND GENOMIC MEDICINE Glucose 166 (H) 65 - 99 mg/dL [facility] DE[facility]MENT OF PATHOLOGY AND GENOMIC MEDICINE Calcium 9.1 8.3 - 10.2 mg/dL [facility] DE[facility] OF PATHOLOGY AND GENOMIC MEDICINE Protein 7.2 6.3 - 8.3 g/dL [facility] DE[facility] Comment: OF PATHOLOGY [place] AND GENOMIC 4.6-7.0 g/dL MEDICINE 1 week 4.4-7.6 g/dL 7 months-1year 5.1-7.3 g/dL 1-2 years5.6-7 .5 g/dL >3 years6.0-8 .0 g/dL 18-150 6.3-8.3 g/dL Albumin 3.0 (L) 3.5 - 5.0 g/dL [facility] DE[facility] OF PATHOLOGY AND GENOMIC MEDICINE A/G ratio 0.7 0.7 - 3.8 [facility] DE[facility] OF PATHOLOGY AND GENOMIC MEDICINE Alkaline 59 35 - 104 U/L [facility] DE[facility] phosphatase OF PATHOLOGY AND GENOMIC MEDICINE AST 14 10 - 35 U/L [facility] DE[facility] OF PATHOLOGY AND GENOMIC MEDICINE ALT 15 5 - 50 U/L [facility] DE[facility] OF PATHOLOGY AND GENOMIC MEDICINE Total bilirubin <0.2 0.0 - 1.2 mg/dL [facility] DE[facility] OF PATHOLOGY AND GENOMIC MEDICINE Specimen Plasma specimen Performing Organization Address City/[facility]/Zipcode Phone Number [facility] DEPARTMENT OF [address] [place] [phone] PATHOLOGY AND GENOMIC MEDICINE * US Guided Intraoperative (05/04/2018 3:00 PM CDT) Specimen Narrative Performed At [facility] Uterus: 9.4cm Endometrium: 4mm Performing Organization Address City/[facility] Centercode Phone Number [facility] [address] [place] [address] * TISSUE, SPECIMEN A (05/04/2018 3:00 PM CDT) Source Comment: Endometrium [facility] Procedure Comment: Biopsy [facility] Gross Comment: [facility] description: EMB, received in formalin, [facility] verified as to the patient's name and consists of multiple fragments of dark red blood clot and regalado soft tissue forming a loose aggregate measuring 1.5 x 1.0 x 0.4 cm.TS, one block(s). CW 05/05/2018 Gross exam(s) performed at: [address] [address] [place] Operator: EMILIANO IRWIN MD Micro Comment: [facility] description Microscopic examination [facility] supports the above diagnosis. Diagnosis Comment: [facility] Benign proliferative [facility] endometrium. No hyperplasia or carcinoma is seen. Specimen Resulting Agency Comment Performing Organization Information: Site ID: [id number] Name: [facility], Address: [address] [place] [phone] Director: Emiliano Irwin MD Performing Organization Address [facility]/Zipcode Phone Number [facility] [address] [address] [facility] * POC , urine (05/04/2018 2:49 PM CDT) [facility] test Negative urine, POC QC done Yes Specimen Urine * HPV mRNA E6/E7 REFLEX HPV 16, 18/45 (03/29/2018 3:43 PM CDT) [facility] HPV mRNA e6/e7 Not Detected Not Detected [facility] Comment: DIAGNOSTICS This test was performed using HEATH the APTIMA HPV Assay ([employer] This assay detects E6/E7 viral messenger RNA (mRNA) from 14 high-risk HPV types (16,18,31,33,35,39,45,51,52,56 ,58,59,66,68). The analytical performance characteristics of this assay have been determined by [employer]. The modifications have not been cleared or approved by the FDA. This assay has been validated pursuant to the CLIA regulations and is used for clinical purposes. Specimen Resulting Agency Comment Performing Organization Information: Site ID: [id number] Name: [facility] Address: [address] [place] [phone] Director: Emiliano Irwin Performing Organization Address [facility] Centercode Phone Number [employer] [address] [address] * PAP W/AGE BASED SCREENING PLUS CT/NG (03/29/2018 3:43 PM CDT) [facility] Comment Comment: [facility] This order for age-based DIAGNOSTICS-HEYDI cervical cancer and STI ING II screening follows ACOG guidelines(PB 168, 140, UBS097). See individual assays for performing site location. Specimen Swab Resulting Agency Comment Performing Organization Information: Site ID: [id number] Name: [facility] Address: [address] [place] [address] Director: Dr. Lawrence Huntley Performing Organization Address [facility]/Zipcode Phone Number [employer] [place] [address] II * CHLAMYDIA/N. GONORRHOEAE RNA, TMA (03/29/2018 3:43 PM CDT) Chlamydia NOT DETECTED NOT DETECTED DIS[facility] trachomatis DIAGNOSTICS RNA, TMA HEATH Neisseria NOT DETECTED NOT DETECTED DISHA gonorrhoeae DIAGNOSTICS RNA, TMA HEATH (Always Comment: [facility] message) This test was performed using DIAGNOSTICS the APTIMA COMBO2 Assay HEATH ([employer] The analytical performance characteristics of this assay, when used to test SurePath specimens have been determined by [employer]. Specimen Resulting Agency Comment Performing Organization Information: Site ID: [id number] Name: [facility] Address: [address] [place] [phone] Director: Emiliano Irwin Performing Organization Address City/State/Zipcode Phone Number DISHA BENITEZ [address] [address] * THINPREP TIS PAP (03/29/2018 3:43 PM CDT) Clinical None given [facility] information DIAGNOSTICS PATRICIA Date of last NONE GIVEN [facility] menstrual DIAGNOSTICS WHITE period SÁNCHEZ Prev. pap: NONE GIVEN [facility] DIAGNOSTICS PATRICIA Prev. bx: NONE GIVEN [facility] DIAGNOSTICS PATRICIA Source None given [facility] DIAGNOSTICS PATRICIA Statement of Comment: [facility] adequacy Satisfactory for evaluation. DIAGNOSTICS WHITE Endocervical/transformation SÁNCHEZ zone component present. Age and/or menstrual status not provided Interpretation/ Comment: Negative for [facility] result: intraepithelial lesion or DIAGNOSTICS WHITE malignancy. S[place] Comment Comment: [facility] This Pap test has been DIAGNOSTICS WHITE evaluated with computer SÁNCHEZ assisted technology. Cytotechnologis Comment: [facility] t AMB, CT(ASCP) DIAGNOSTICS WHITE CT screening location: [place] [address] [place] [address] Review Comment: [facility] cytotechnologis [facility], [place] DIAGNOSTICS WHITE t CT screening location: [facility] [address] [place] [address] Comment Comment: [facility] EXPLANATORY NOTE: DIAGNOSTICS WHITE The Pap is a screening test SÁNCHEZ for cervical cancer. It is not a diagnostic test and is subject to false negative and false positive results. It is most reliable when a satisfactory sample, regularly obtained, is submitted with relevant clinical findings and history, and when the Pap result is evaluated along with historic and current clinical information. Specimen Resulting Agency Comment Performing Organization Information: Site ID: [id number] Name: [facility] Address: [address], [address] [place] [address] Director: Emiliano Irwin MD Performing Organization Address City/State/Zipcode Phone Number DISHA [facility] [address] [place] [address] SÁNCHEZ * Follicle stimulating hormone (03/29/2018 2:57 PM CDT) Follicle 6.8 mIU/mL [facility] stimulating Comment: DIAGNOSTICS hormone HEATH Reference Range Follicular Phase 2.5-10.2 Mid-cycle Peak 3.1-17.7 Luteal Phase 1.5- 9.1 Postmenopausal 23.0-116.3 Specimen Blood Resulting Agency Comment Performing Organization Information: Site ID: [id number] Name: [facility] Address: [address] [place] [address] Director: Emiliano Irwin Performing Organization Address City/State/[facility] Centercode Phone Number [facility] [address] [place] [phone] after 03/02/2018 Insurance Type Payer Benefit Subscriber ID Effective Phone Address Plan / Dates Group PPO BCBS BCBS xxxxxxxxxxxx [id number] CHOICE resent PPO/ANGELA JAUREGUI PPO Advance Directives Patient has advance care planning documents on file. For more information, ricky esipnosa contact: Saman Quesada [address] [place] [address]
--- OUTSIDE RECORDS SUMMARY | 2019-03-03 21:36 | XMS REPORT | Continuity of Care Document ---
Author Author [facility] Interface Address Unknown Phone Unavailable Problems Problem Status Onset Date Classification Date Reported Comments Source CHEST Active 06/24/2017 [facility] SCREENING MAMMOGRAM Active 04/16/2016 [facility] BACK PAIN/ABDOMINAL PAIN Active 05/24/2013 [facility] PRE TRANSPLANT EVAL Active 04/28/2012 [facility] Medications Medication Details Route Status Patient Instructions Ordering Provider Order Date Source Ultram 50 mg oral tablet 50 mg, 1 tab, PO, Q4H, PRN, 20 tab, pain, Substitution Allowed PO Active [facility] 05/24/2013 [facility] fluconazole 150 mg oral tablet 150 mg, 1 tab, PO, ONCE, 1 tab, Substitution Allowed PO Active [facility] 05/24/2013 [facility] [place] 5/325 oral tablet 1 tab, Route: PO, Drug Form: TAB, Dosing Weight 80, kg, ONCE, Start date: 05/24/13 7:11:00, Stop date: 05/24/13 7:11:00 PO No Longer Active [facility] 05/24/2013 [facility] Allergies, Adverse Reactions, Alerts Substance Category Reaction Severity Reaction type Status Date Reported Comments Source Immunizations Immunization Date Given Site Status Last Updated Comments Source Results Order Name Results Value Reference Range Date Interpretation Comments Source Chest 2 views DX Chest 2 views DX Clinical Indication: 42 years Female with - r05 cough Comparison: None FINDINGS: The PA and lateral chest radiographs shows normal lung volumes. No interstitial or airspace opacities. No pleural effusion. No pneumothorax. The cardiac silhouette is normal. The pulmonary vasculature is normal. The trachea is midline. There are no acute osseous abnormalities noted. IMPRESSION: No acute cardiopulmonary abnormality. No radiographic evidence of pneumonia. SL: [id number] 06/24/2017 - - Read by: Meir Grullon MD Dictated Date/time: 06/24/17 16:13 Electronically Signed by: Meir Grullon MD 06/24/17 16:14 FINAL REPORT [facility] Digital Mammo Screening [place] [facility] Digital Mammo Screening [facility] MA - DIGITAL MAMMO SCREENING [place] MA BILATERAL [facility] DIGITAL SCREENING MAMMOGRAM WITH CAD: 05/31/2016 CLINICAL: Routine. Current study was evaluated with a Computer Aided Detection (CAD) system. There are no comparison films available as this is the patient's baseline mammogram. There are scattered fibroglandular densities in both breasts. The patient is status post reduction both breasts. Both breasts have post- operative findings. There are benign calcifications in both breasts. There also are benign vascular calcifications in the right breast. No significant masses, calcifications, or other findings are seen in either breast. IMPRESSION: BENIGN There is no mammographic evidence of malignancy. A 1 year screening mammogram is recommended. Rosalva pizano/penrad:06/02/2016 08:27:51 Cyber Analyst: Rosa Louis, [facility] This exam was dictated and interpreted by [id number] for [facility]. letter sent: Normal exam Mammogram BI-RADS: 2 Benign 05/31/2016 - - Read by: Rosalva Hannah MD Dictated Date/time: 06/02/16 08:27 Electronically Signed by: Rosalva Hannah MD 06/02/16 08:27 FINAL REPORT [facility] IMMUNOLOGY Source Chlam endocervix 05/24/2013 NA [facility] IMMUNOLOGY Chlam PCR Negative (05/24/2013 08:30:00) Negative 05/24/2013 Normal [facility] IMMUNOLOGY Gonorrhea PCR Negative (05/24/2013 08:30:00) Negative 05/24/2013 Normal [facility] IMMUNOLOGY Source [place] Endocervix 05/24/2013 NA [facility] Microbiology Wet Prep 05/24/2013 [facility] CHEMISTRY U Preg Negative (05/24/2013 06:57:00) Negative 05/24/2013 Normal [facility] URINALYSIS UA Glucose Negative (05/24/2013 06:57:00) Negative 05/24/2013 Normal [facility] URINALYSIS UA Bili Negative *NA* (05/24/2013 06:57:00) Negative 05/24/2013 NA [facility] URINALYSIS UA Urobilinogen 0.2 EU/dL 0.1 - 1.0 05/24/2013 Normal [facility] URINALYSIS UA Blood Moderate *ABN* (05/24/2013 06:57:00) Negative 05/24/2013 ABN [facility] URINALYSIS UA Ketones Negative *NA* (05/24/2013 06:57:00) Negative 05/24/2013 NA [facility] URINALYSIS UA Protein 30 mg/dL *ABN* (05/24/2013 06:57:00) Negative 05/24/2013 ABN [facility] URINALYSIS UA Nitrite Negative (05/24/2013 06:57:00) Negative 05/24/2013 Normal [facility] URINALYSIS UA Leuk Est Trace *ABN* (05/24/2013 06:57:00) Negative 05/24/2013 ABN [facility] URINALYSIS UA pH 6.0 5.0 - 8.0 05/24/2013 Normal [facility] URINALYSIS UA Spec Grav 1.025 <=1.030 05/24/2013 Normal [facility] URINALYSIS UA Turbidity Clear (05/24/2013 06:57:00) Clear 05/24/2013 Normal [facility] URINALYSIS UA Color Yellow *NA* (05/24/2013 06:57:00) Yellow 05/24/2013 NA [facility] URINALYSIS UA RBC 6 /HPF 0 - 2 05/24/2013 HI [facility] URINALYSIS UA Sq Epi Many /LPF *ABN* (05/24/2013 06:57:00) Few 05/24/2013 ABN [facility] URINALYSIS UA WBC 8 /HPF 0 - 5 05/24/2013 HI [facility] URINALYSIS UA [place] Yeast Occasional /HPF *ABN* (05/24/2013 06:57:00) None Seen 05/24/2013 ABN [facility] URINALYSIS UA Bacteria Occasional /HPF *NA* (05/24/2013 06:57:00) None Seen 05/24/2013 NA [facility] Microbiology Culture: Urine 05/24/2013 [facility] Vital Signs Vital Sign Value Date Comments Source Diastolic (mm Hg) 74 05/24/2013 [facility] Systolic (mm Hg) 133 05/24/2013 [facility] Respitory Rate 20 05/24/2013 [facility] Heart Rate 85 05/24/2013 [facility] Temperature Oral (F) 98.6 F 05/24/2013 [facility] Diastolic (mm Hg) 74 05/24/2013 [facility] Respitory Rate 18 05/24/2013 [facility] Heart Rate 86 05/24/2013 [facility] Systolic (mm Hg) 145 05/24/2013 [facility] Temperature Oral (F) 98.6 F 05/24/2013 [facility] Weight 80 05/24/2013 [facility] Height 162.56 cm 05/24/2013 [facility] Encounters Location Location Details Encounter Type Encounter Number Reason For Visit Attending Provider ADM Date DC Date Status Source [facility] TB [id number] PRE TRANSPLANT EVAL JULIANA ADROGUE 06/08/2012 Active [facility] Emergency [id number] LUIS SIEGELEHAN 05/24/2013 05/24/[address] [facility] [id number] [place] Cici 05/31/2016 06/01/2016 [facility] [id number] [place] 06/24/2017 06/25/2017 [facility] [id number] PRE TRANSPLANT EVAL JULIANA ADROGUE Cancel [facility] Procedures Procedure Code Date Perfomer Comments Source
[2019-03-03] MEDS ORDERED: CLONIDINE HCL 0.2 MG TAB PO ONE (22:15)
[2019-03-03] MEDS ORDERED: ACETAMINOPHEN 325 MG TAB PO ONE (22:15)
[2019-03-03] MEDS ORDERED: CLONIDINE HCL 0.1 MG TAB ONE (22:18)
[2019-03-03] MEDS ORDERED: ACETAMINOPHEN 325 MG TAB ONE (22:18)
--- NOTE | 2019-03-03 22:58 | Diagnostic Imaging Report ---
Left wrist 3 - views HISTORY: Pain. Dropped heavy box on. COMPARISON: None FINDINGS: No displaced fracture. Osseous alignment is within normal limits. The joint spaces are well-maintained. The soft tissues appear unremarkable. IMPRESSION: No acute radiographic abnormality. Signed by: Dr. Shilpa Gomez M.D. on 03/03/2019 10:55 PM
[2019-03-04 00:04] VITALS: BP 184/93
== END 2019-03-03 23:02 | disposition home or self-care (01) ==
LOC: FSED 21:33
DX: S63.522A Sprain of radiocarpal joint of left wrist, initial encounter (principal); I10 Essential (primary) hypertension; E11.9 Type 2 diabetes mellitus without complications; E78.5 Hyperlipidemia, unspecified